=== PATIENT | male | born 1985 | race Caucasian/White ===

== ENCOUNTER 2024-07-09 20:31 | Emergency (ER) | payer SELFPAY ==
[~2024-07-09] VITALS: Ht 175.3 cm; Wt 103.0 kg
[2024-07-09 20:57] LABS: BASOPHILS # (AUTO) 0.1 (0.0-0.1); BASOPHILS % 0.3 % (0.0-1.0); EOSINOPHILS # (AUTO) 0.1 (0.0-0.4); EOSINOPHILS % 0.5 % (0.0-6.0); HEMATOCRIT 45.2 % (38.2-49.6); HEMOGLOBIN 15.4 g/dL (14.0-18.0); LYMPHOCYTES # (AUTO) 2.2 (1.0-3.2); MEAN CORPUSCULAR HGB CONC 34.1 g/dL (31-35); MEAN CORPUSCULAR VOLUME 87.9 fL (81-99); MONOCYTES % 6.7 % (4.4-11.3); NEUTROPHILS # (AUTO) 11.5 (2.1-6.9); NEUTROPHILS % 77.2 % (38.7-80.0); PLATELET COUNT 146 x10e3/uL (140-360); RED BLOOD COUNT 5.14 x10e6/uL (4.3-5.7); RED CELL DISTRIBUTION WIDTH 12.9 % (11.7-14.4); WHITE BLOOD COUNT 14.84 x10e3/uL (4.8-10.8)
[2024-07-09] MEDS: SODIUM CHLORIDE 0.9% 1000ML 1,000 ML IV ONE (20:58)
[2024-07-09] MEDS: HALOPERIDOL LACTATE 5 MG/ML VIAL IV ONE ×2 (20:59→21:34)
[2024-07-09] MEDS: KETOROLAC TROMETHAMINE 30 MG/ML VIAL IV STA (20:59)
[2024-07-09] MEDS: DICYCLOMINE HCL 20 MG/2 ML VIAL IM ONE (20:59)
[2024-07-09] MEDS ORDERED: PROMETHAZINE HCL (IM) 25 MG/ML VIAL IM ONE (21:01)
[2024-07-09 21:09] LABS: LIPASE 28 U/L (8-78)
[2024-07-09 21:11] LABS: ALBUMIN 4.2 g/dL (3.5-5.0); ALBUMIN/GLOBULIN RATIO 1.7 (0.8-2.0); BILIRUBIN,TOTAL 0.4 mg/dL (0.2-1.2); CALCIUM 9.1 mg/dL (8.4-10.2); CREATININE, SERUM 0.96 mg/dL (0.72-1.25); TOTAL PROTEIN 6.7 g/dL (6.5-8.1)
[2024-07-09] MEDS: PROMETHAZINE HCL (IM) 25 MG/ML VIAL IM ONE (21:12)
[2024-07-09 21:23] LABS: TROPONIN I < 0.001 ng/mL (0-0.300)
[2024-07-09] MEDS ORDERED: IOPAMIDOL 370 MG/ML 100 ML INFUS..BTL INJ ONE (22:04)
[2024-07-09] MEDS: Morphine 4mg INJECTION 4 MG/ML INJ IV ONE (22:17)
[2024-07-10] MEDS ORDERED: CIPRO500 MG PO (00:35)
[2024-07-10] MEDS ORDERED: PANTOPRAZOLE SO40 MG PO (00:35)
[2024-07-10] MEDS ORDERED: DICYCLOMINE HCL20 MG PO (00:35)
[2024-07-10] MEDS ORDERED: ONDANSETRON ODT4 MG SL (00:35)
[2024-07-10] MEDS ORDERED: METRONIDAZOLE500 MG PO (00:35)
[2024-07-10 00:50] VITALS: PULSE 62; RESP 16; TEMP 98.6; O2SAT 96
== END 2024-07-10 01:03 | disposition home or self-care (01) ==
LOC: ER 20:53
DX: R11.2 Nausea with vomiting, unspecified (principal); K52.9 Noninfective gastroenteritis and colitis, unspecified; R10.10 Upper abdominal pain, unspecified; I10 Essential (primary) hypertension; E78.5 Hyperlipidemia, unspecified
CPT/HCPCS: 36415; 74177; 76705; 80053; 83690; 84484; 85025; 93005; 99284; J0500; J1630; J1885; J2270; J2470; J2550; J7030; Q9967